=== PATIENT | male | born 1980 | race Caucasian/White ===

== ENCOUNTER 2022-03-20 02:43 | Emergency (ER) | payer SELFPAY ==
[2022-03-20 03:14] VITALS: BP 128/71; PULSE 76; TEMP 98.1; BMI 28.2
[2022-03-20] MEDS ORDERED: ACETAMINOPHEN 325 MG TABLET (FP) PO ONE (03:23)
[2022-03-20] MEDS ORDERED: ACETAMINOPHEN 325 MG TABLET (FP) ONE (03:34)
== END 2022-03-20 05:23 | disposition home or self-care (01) ==
LOC: JER 02:43
DX: S62.346A Nondisplaced fracture of base of fifth metacarpal bone, right hand, initial encounter for closed fracture (principal); W01.0XXA Fall on same level from slipping, tripping and stumbling without subsequent striking against object, initial encounter
CPT/HCPCS: 73110-TC-RT-FY; 73130-TC-RT-FY; 99283-25